=== PATIENT | male | born 1970 | race Caucasian/White ===

== ENCOUNTER 2016-12-15 11:47 | Emergency (ER) | payer OTHER ==
[2016-12-15] MEDS ORDERED: DIPHTH,PERTUSS(ACELL),TET VAC 0.5 ML VIAL IM V ONE (12:16)
--- NOTE | 2016-12-15 12:54 | RAD ---
EXAMINATION : FINGER LEFT HISTORY: Nail gun injury. Initial encounter. COMPARISONS: None FINDINGS: There is a nail closely approximating the proximal phalanx of the left third digit. It is currently uncertain if there is intraosseous extension. No adjacent fracture is identified. No other radiopaque foreign body is seen. Joint space relationships are maintained. IMPRESSION: Nail gun injury left third digit. This closely approximates the proximal phalanx. No fracture is appreciated.
== END 2016-12-15 12:57 | disposition home or self-care (01) ==
LOC: ED 11:47
DX: S61.243A Puncture wound with foreign body of left middle finger without damage to nail, initial encounter (principal); W29.4XXA Contact with nail gun, initial encounter; Y92.22 Religious institution as the place of occurrence of the external cause